=== PATIENT | male | born 1955 | race Caucasian/White ===

== ENCOUNTER 2017-07-15 20:09 | Emergency (ER) | payer OTHER ==
[~2017-07-15] VITALS: Ht 182.9 cm; Wt 79.4 kg
[~2017-07-15 20:09] MED LIST: APAP650; AUGMENTIN 875875 M1 PO; AVELOX PO; CRESTOR10 MG PO; DEPAKOTE500 MG PO; METHADONE HCL 110 M1; METHADONE HCL 110 M1 PO; MOBIC15 MG PO; MUCINEX D TABL1 EAC1 PO; MULTIPLE VITAM1 EAC3 PO; MULTIVITAMINS PO; NEXIUM40 MG PO; OXCARBAZEPINE300 M1 PO; PROAIR HFA8.5 GM IH; PULMICORT0.5 MG/21 INH; SPIRIVA INH; THIOTHIXENE10 M1 PO; THIOTHIXENE10 MG PO; TRILEPTAL 300300 MG PO
[2017-07-15] MEDS ORDERED: OMEPRAZOLE 20 M20 M1 PO (20:32)
[2017-07-15] MEDS ORDERED: PROSCAR 5MG TABL5 M1 PO (20:32)
[2017-07-15] MEDS ORDERED: BROVANA15 MCG/2 M INH (20:32)
== END 2017-07-15 23:05 | disposition home or self-care (01) ==
LOC: ER 20:09
DX: M54.6 Pain in thoracic spine (principal); W19.XXXA Unspecified fall, initial encounter; Y93.89 Activity, other specified; Y92.89 Other specified places as the place of occurrence of the external cause; Y99.8 Other external cause status; I10 Essential (primary) hypertension; K21.9 Gastro-esophageal reflux disease without esophagitis; J45.909 Unspecified asthma, uncomplicated; F20.9 Schizophrenia, unspecified; Z88.2 Allergy status to sulfonamides; Z88.1 Allergy status to other antibiotic agents

== ENCOUNTER 2017-07-21 15:30 | Emergency (ER) | payer OTHER ==
[~2017-07-21] VITALS: Ht 182.9 cm; Wt 79.4 kg
[~2017-07-21 15:30] MED LIST changes: +BROVANA15 MCG/2 M INH; +OMEPRAZOLE 20 M20 M1 PO; +PROSCAR 5MG TABL5 M1 PO
[2017-07-21] MEDS ORDERED: TRAMADOL 50 MG50 MG PO (17:05)
== END 2017-07-21 18:03 | disposition home or self-care (01) ==
LOC: ER 15:30
DX: M54.2 Cervicalgia (principal); I10 Essential (primary) hypertension; K21.9 Gastro-esophageal reflux disease without esophagitis; J45.909 Unspecified asthma, uncomplicated; F31.9 Bipolar disorder, unspecified; Z88.1 Allergy status to other antibiotic agents; Z88.2 Allergy status to sulfonamides; W19.XXXA Unspecified fall, initial encounter; Y93.89 Activity, other specified; Y92.89 Other specified places as the place of occurrence of the external cause; Y99.8 Other external cause status

== ENCOUNTER 2018-07-03 06:43 | Inpatient (IN) | payer OTHER ==
[~2018-07-03] VITALS: Ht 172.7 cm; Wt 86.0 kg
[~2018-07-03 06:43] MED LIST changes: +DEPAKOTE ER500 MG PO; -DEPAKOTE500 MG PO; +KEFLEX500 M1 PO; +TRAMADOL 50 MG50 MG PO
[2018-07-03 06:45] VITALS: BP 117/78
[2018-07-03] MEDS ORDERED: NORVASC5 MG PO (07:03)
[2018-07-03] MEDS ORDERED: PROSCAR 5MG TABL5 MG PO (07:04)
[2018-07-03] MEDS ORDERED: RISPERDAL0.5 MG PO (07:07)
[2018-07-03 07:43] LABS: ABSOLUTE NEUTROPHILS 4.1 thou/uL (1.4-8.2); BASOPHILS 0.4 % (0.0-2.0); HEMATOCRIT 34.1 % (42.0-52.0); HEMOGLOBIN 11.1 gm/dL (14.0-18.0); LYMPHOCYTES 14.9 % (24.0-44.0); MCH 28.6 pg (26.0-34.0); MCHC 32.7 g/dL (28.0-37.0); MCV 87.7 fL (80.0-100.0); MONOCYTES 9.2 % (1.0-8.0); POLYS 73.5 % (36.0-66.0); RBC 3.89 mil/uL (4.50-6.00); WBC 5.6 thou/uL (4.0-11.0)
[2018-07-03 07:52] LABS: CALCIUM 9.5 mg/dL (8.5-10.1); CREATININE 0.9 mg/dL (0.7-1.3); POTASSIUM 3.9 mmol/L (3.5-5.1)
[2018-07-03 07:53] LABS: APTT 30.8 Seconds (24.5-32.8); INR 1.2; PROTIME 12.7 Seconds (9.3-11.4)
[2018-07-03 08:03] LABS: ALBUMIN 2.6 g/dL (3.4-5.0); MAGNESIUM 1.8 mg/dL (1.8-2.4); TOTAL BILIRUBIN 0.5 mg/dL (<0.1-1.0); TOTAL PROTEIN 6.9 g/dL (6.4-8.2); TROPONIN-I 0.06 ng/mL (<0.06)
[2018-07-03 08:18] LABS: ANISOCYTOSIS 1+; LARGE PLATELETS SEVERAL; OVALOCYTES OCCASIONAL; PLATELET COUNT 169 thou/uL (150-400)
[2018-07-03 10:24] VITALS: BP 98/64
[2018-07-03 10:28] VITALS: BP 97/60
[2018-07-03 11:15] VITALS: BP 141/87
--- NOTE | 2018-07-03 11:33 | 2DMMODE ---
[facility] [place] [address] 2 D/M-MODE ECHOCARDIOGRAM Name: JONATHAN FORTE Room #: 213-P [facility] IN .R.#: [id number] ������������� Admission: 07/03/18 ������������� Attend Phys: Marty Moore MD Discharge: ��� ������������� ��� Date of : 55 Date of Service: 07/03/18 1133 �� Report #: [id number] �������� ��������������������������������������������[id number] THIS REPORT FOR: //name// APPROVED REPORT Study performed: 07/03/2018 10:26:19 EXAM: Comprehensive 2D, Doppler, and color-flow Echocardiogram Patient Location: ER Status: on-call BSA: 1.93 HR: 94 bpm BP: 98/64 mmHg Rhythm: Atrial Fibrillation Other Information Study Quality: Good Technically limited study due to heavy breathing, patient flat on back.. Indications Atrial Fibrillation Hx: HTN, cerebal palsy. 2D Dimensions RVDd: 33.43 mm IVSd: 13.84 (7-11mm) LVOT Diam: 20.87 (18-24mm) LVDd: 41.70 mm PWd: 14.94 (7-11mm) Ascending Ao: 31.83 (22-36mm) LVDs: 34.88 (25-40mm) Aortic Root: 32.41 mm Volumes Left Atrial Volume (Systole) Single Plane 4CH: 71.48 mL Single Plane 2CH: 65.00 mL LA ESV Index: 39.00 mL/m2 Aortic Valve AoV Peak Shaan.: 1.14 m/s AO Peak Gr.: 5.35 mmHg LVOT Max P.16 mmHg LVOT Max V: 0.88 m/s MARYSOL Vmax: 2.64 cm2 Mitral Valve [facility] [address] [place] [address] 2 D/M-MODE ECHOCARDIOGRAM Name: JONATHAN FORTE Room #: 213-P [facility] IN [facility].#: [id number] ������������� Admission: 07/03/18 ������������� Attend Phys: Marty Moore MD Discharge: ��� ������������� ��� Date of : 55 Date of Service: 07/03/18 1133 �� Report #: [id number] �������� ��������������������������������������������[id number] MV Decel. Time: 130.44 ms MV E Max Shaan.: 0.91 m/s Pulmonary Valve PV Peak Shaan.: 0.93 m/s PV Peak Gr.: 3.44 mmHg Tricuspid Valve TR Peak Shaan.: 2.75 m/s RAP Estimate: 15.00 mmHg TR Peak Gr.: 30.38 mmHg PA Pressure: 45.00 mmHg Left Ventricle The left ventricle is normal size. Moderate concentric left ventricular hypertrophy. Left ventricular systolic function is mildly decreased. LVEF is 45%. This study is not technically sufficient to allow evaluation of the LV diastolic function due to atrial fibrillation. Right Ventricle The right ventricle is normal size. The right ventricular systolic function is low normal. Atria Left atrium is moderately dilated. Right atrium is at the upper limits of normal. Aortic Valve Aortic valve is trileaflet, mildly calcified. No aortic regurgitation is present. There is no aortic valvular stenosis. Mitral Valve The mitral valve is normal in structure. Mild mitral regurgitation. Tricuspid Valve The tricuspid valve is normal in structure. Moderate tricuspid regurgitation. Estimated PAP is 40-45mmHg. Pulmonic Valve The pulmonary valve is normal in structure. Trace pulmonic regurgitation. Great Vessels The aortic root is normal in size. The ascending aorta is normal in size. IVC is dilated and collapses <50% with inspiration. [facility] [place] [address] 2 D/M-MODE ECHOCARDIOGRAM Name: JONATHAN FORTE Room #: 213-P ADM IN M.R.#: [id number] ������������� Admission: 07/03/18 ������������� Attend Phys: Marty Moore MD Discharge: ��� ������������� ��� Date of : 55 Date of Service: 07/03/18 1133 �� Report #: [id number] �������� ��������������������������������������������[id number] Pericardium There is no pericardial effusion. <Conclusion> The left ventricle is normal size. Moderate concentric left ventricular hypertrophy. Left ventricular systolic function is mildly decreased. The right ventricle is normal size. Left atrium is moderately dilated. Right atrium is at the upper limits of normal. Aortic valve is trileaflet, mildly calcified. Mild mitral regurgitation. Moderate tricuspid regurgitation. Estimated PAP is 40-45mmHg. ��������������������������������������������� <ELECTRONICALLY SIGNED> ���������������������������������������� By: Sreekanth Vaz MD ��������������������������������������������� 07/03/18 1133 113 32 Sreekanth Vaz MD /INF
[2018-07-03 15:35] VITALS: BP 102/75
[2018-07-03 20:25] VITALS: BP 120/85
[2018-07-04] VITALS (7 sets, daily range): BP systolic 85–117; BP diastolic 53–79
--- NOTE | 2018-07-04 00:44 | NUR ---
ASSESSMENT CHARTED. PATIENT ON CARDIZEM GTT AT 10MG/HR AT START OF SHIFT, TITRATE DOWN TO 5 MG/H AT MIDNIGHT DUE TO HYPOTENSION. REQUESTED BREATHING TREATMENT. HOME MEDS HAD NOT BEEN RESTARTED. SPOKE WITH JIMMY HOWE FOR ORDERS. PATIENT DENIED CONCERNS AFTER BREATHING TREATMENT. PLAN OF CARE TO CONTINUE DIURESING AND REGULATING HEART MEDS.
[2018-07-04 05:44] LABS: HEMOGLOBIN 10.4 gm/dL (14.0-18.0); MCH 28.5 pg (26.0-34.0); MCHC 32.4 g/dL (28.0-37.0); MCV 87.8 fL (80.0-100.0); RBC 3.65 mil/uL (4.50-6.00); RDW 16.7 % (10.5-14.5); WBC 4.5 thou/uL (4.0-11.0)
[2018-07-04 06:02] LABS: CALCIUM 8.4 mg/dL (8.5-10.1); CREATININE 1.4 mg/dL (0.7-1.3)
[2018-07-04 06:05] LABS: POTASSIUM 4.9 mmol/L (3.5-5.1)
--- NOTE | 2018-07-04 06:45 | NUR ---
ASSUMED CARE AROUND 0100. CARDIZEN DRIP HELD PER SBP TOO LOW. COUPLE HOURS LATER, BP STILL LOW, HR LOW, PT DIAPHORETIC. CALLED RT FOR BREATHING TX AND GAVE ONE TIME BOLUS. VSS NOW. NO S/S ACUTE DISTRESS NOTED OR REPORTED AT THIS TIME. WILL CONT TO MONITOR FOR ANY CHANGES IN CONDITION.
--- NOTE | 2018-07-04 08:16 | EKG ---
[address] [place] [address] ELECTROCARDIOGRAM REPORT Name: JONATHAN FORTE Room #: 213-P ADM IN M.R.#: [id number] ������������������ Admission: 07/03/18 ������������������ Attend Phys: Marty Moore MD Discharge: ������������������ Date of : 55 Report #: [id number] ����������������������������������������������������������������� [id number] THIS REPORT FOR: //name// [facility] ED Test Date: 2018-07-03 Test Time: 07:12:00 Pat Name: JONATHAN FORTE Department: Room: 213 Gender: M State Archivist: : 1955 Requested By: Chuck Mariee Order Number: [id number] MD: Sreekanth Vaz Measurements Intervals [place] Rate: 149 P: [place]: QRS: 3 QRSD: 86 T: QT: 327 QTc: 515 Interpretive Statements Atrial fibrillation Ventricular premature complex Borderline low voltage, extremity leads Nonspecific T abnormalities, lateral leads Prolonged QT interval Compared to ECG 06/03/2010 18:29:11 Ventricular premature complex(es) now present T-wave abnormality now present Prolonged QT interval now present Sinus tachycardia no longer present Electronically Signed On 07-04-2018 8:16:39 CDT by Sreekanth Vaz [email or web address] ��������������������������������������������� <ELECTRONICALLY SIGNED> ���������������������������������������� By: Sreeaknth Vaz MD ��������������������������������������������� 07/04/18 0816 1 1 Sreekanth Vaz MD /EPI
--- NOTE | 2018-07-04 16:44 | NUR ---
ASSUMED CARE THIS AM, PATIENT SLEEPING BUT AWAKES TO VOICE. NO COMPLAINTS OF PAIN OR NAUSEA. ORIENTED TO SELF WHICH IS HIS BASELINE. 4L NC, CONVERTED TO SR FROM AFIB AT O738. DR. STEVEN WILL PUT PATIENT ON BABY ASA, HIGH RISK OF BLEED BECAUSE OF FALLS. OOB TO CHAIR WITH MODERATE ASSIST. 1700: BROTHER AT BS, UPDATED ON POA. CONTINUES IN SR. LASIX ON HOLD AND LOVENOX DISCONTINUED.
[2018-07-05 04:32] VITALS: BP 104/75
--- NOTE | 2018-07-05 05:55 | NUR ---
ASSUMED PT CARE AT 1900. VSS. PT A&0X4. NIGHT TIME METOPROLOL NOT GIVEN HR WAS LESS THAN 90 PER PASSED ON INSTRUCTION BY FROM DAY NURSE. PT IS STABLE THOUGH, RESTED WELL MOST OF THE NIGHT, HE HAD A BM LAST NIGHT, ALTHOUGH VERY MINIMAL URINE OUTPUT OVERNIGHT. BLE EDEMA STILL PRESENT. O2 NC AT 3.5. SATS ARE FINE, WILL CONTINUE TO MONITOR PER POC.
[2018-07-05 07:30] VITALS: BP 127/83
--- NOTE | 2018-07-05 08:37 | HC ---
[facility] [place] [address] CONSULTATION Name: JONATHAN FORTE Room #: 213-P [facility] M.R.#: [id number] Admission: 07/03/18 ������������������ Attend Phys: Marty Moore MD Discharge: ������������������ Date of : 55 Report #: [id number] THIS REPORT FOR: //name// CC: Marty Mcallister DATE OF SERVICE: 07/03/2018 INDICATION: Dyspnea. HISTORY OF PRESENT ILLNESS: This is a 63-year-old male with a history of cerebral palsy, spastic paresis, hypertension, hypercholesterolemia, recurrent falls, GERD presenting with fatigue, dyspnea and edema. The patient reports dyspnea for the past few weeks, but denies any history of orthopnea. He has noted fatigue and edema. There is no history of chest pains, fever, cough, PND or orthopnea. He denies any history of palpitations. He lives in assisted living facility. In the ER, he was noted to be in atrial fibrillation with a rapid ventricular rate. He has no prior cardiac history. PAST MEDICAL HISTORY: Cerebral palsy with spastic paresis, chronic degenerative arthritis of the spine, recurrent falls. Hypertension, hypercholesterolemia, GERD, bipolar disorder. ALLERGIES: TO ERYTHROMYCIN AND SULFA. MEDICATIONS: Include tramadol, Keflex, omeprazole 20 mg, amlodipine 5 mg, Crestor 10 mg, albuterol, Spiriva. SOCIAL HISTORY: Negative for tobacco use. FAMILY HISTORY: Negative for premature CAD. REVIEW OF SYSTEMS: A full 10-point review of systems is performed. Only the pertinent positives and negatives are described in the HPI. PHYSICAL EXAMINATION: VITAL SIGNS: Blood pressure is 120/80, heart rate is 110 beats per minute. GENERAL APPEARANCE: This is a well-developed, well-nourished male in no acute distress. HEENT: Normocephalic, atraumatic. Oral mucosa moist. NECK: Supple. LUNGS: Diminished breath sounds at the bases. CARDIAC: Irregularly regular, S1, S2 positive. ABDOMEN: Soft, nontender. Positive edema, no cyanosis. ECG reveals atrial fibrillation with a rapid rate, nonspecific T-wave [facility] [address] [place] [address] CONSULTATION Name: JONATHAN FORTE Room #: 213-P [facility] IN .R.#: [id number] Admission: 07/03/18 ������������������ Attend Phys: Marty Moore MD Discharge: ������������������ Date of : 55 Report #: [id number]. LABORATORY VALUES: Troponin 0.1. White count is 5.6, hemoglobin is 11.1, platelet counts is 169, BUN is 32, creatinine 0.9. ASSESSMENT AND PLAN: 1. Atrial fibrillation with a rapid ventricular rate, TSH level is within normal limits. The etiology is unclear. Would proceed with rate control with IV Cardizem. We will need an echocardiogram. Recommend Lovenox at this time. He may not be a good candidate for long-term anticoagulation in view of his history of falls. 2. Weakness/dyspnea, rule out pneumonitis. Check cultures and chest x-ray. 3. Hypertension, hold amlodipine. May need to transition to beta jada for management of blood pressure and atrial fibrillation. 4. Hypercholesterolemia, continue statin medication. 5. History of cerebral palsy with spastic paresis, fall precautions. 6. Gastroesophageal reflux disease, continue with PPI. ��������������������������������������������� <ELECTRONICALLY SIGNED> ���������������������������������������� By: Sreekanth Vaz MD ��������������������������������������������� 07/05/18 0837 2124 [id number] Sreekanth Vaz MD /nt
[2018-07-05 10:56] VITALS: BP 121/99
[2018-07-05 15:25] VITALS: BP 96/62
--- NOTE | 2018-07-05 18:13 | NUR ---
ASSESSMENT CHARTED, VSS, O2 AT 4L, PATIENT HAS A CONDOM CATHERTER, NO COMPAINTS OF PAIN, WILL CONTINUE TO MONITOR
[2018-07-05 19:20] VITALS: BP 96/70
--- NOTE | 2018-07-05 21:27 | NUR ---
2120: CALLED JESSI AVENDAÑO REPORT LOW URINE OUTPUT FROM DAYSHIFT. PT ONLY HAS 100 OUT PER DAY NURSE DURING REPORT/AND LASIX WAS GIVEN AT ABOUT 1415 TODAY. PT IS NOT ON FLUIDS AND I AM NOT SURE HOW MUCH FLUIDS HE DRINK PER SHIFT. JESSI TO READ THROUGH PT'S CHART AND CALL BACK WITH A FOLLOW UP. WILL CONTINUE TO MONITOR PT
[2018-07-06 00:35] VITALS: BP 94/72
[2018-07-06 03:51] VITALS: BP 113/80
[2018-07-06 04:12] LABS: HEMATOCRIT 35.3 % (42.0-52.0); HEMOGLOBIN 11.4 gm/dL (14.0-18.0); MCH 28.5 pg (26.0-34.0); MCHC 32.3 g/dL (28.0-37.0); MCV 88.3 fL (80.0-100.0); RBC 3.99 mil/uL (4.50-6.00); RDW 16.8 % (10.5-14.5); WBC 3.8 thou/uL (4.0-11.0)
[2018-07-06 04:17] LABS: CALCIUM 8.2 mg/dL (8.5-10.1)
[2018-07-06 04:41] LABS: CREATININE 3.1 mg/dL (0.7-1.3)
[2018-07-06 07:40] VITALS: BP 135/91
--- NOTE | 2018-07-06 09:04 | NUR ---
ASSUME ARE 1900. NOTED FROM DAY NURSE PT'S TOTAL SHI8FT OUTPUT WAS 100ML WITH 40MG/LASIX GIVEN AT 1415. BLADDER SCAN AT SHIFT CHANGE SHOWS URINE >277ML IN BLADDER. ELEMENTARY MATH TUTOR CALLED AND UPDATED. ELEMENTARY MATH TUTOR TO READ MD'S NOTES AND FOLLOW UP WITH NURSE. CONTINUE TO MONITOR URINE OUTPUIT AND ENCOURAGED PT TO DRINK MORE. BP LOW WITH SBP IN THE 90s. PT HAS EDEMA IN BILATERAL LOWER EXTREMITIES SDPEADING TO ABDOMEN/MINOR HIP AND BACK AREAS. CR UP TO 3.4 THIS AM. ANOTHER BLADDER SCAN SHOWS 125ML IN BLADDER, AND PT NOTED TO HAVE BEEN INCONTINENT 4 TIMES FROM MIDNIGHT TO MORNING AFTER A TOTAL FLUID INTAKE OF ABOUT 360ML. 2 MOD AMOUNT BMs NOTED. ELEMENTARY MATH TUTOR CALLED AND UPDATED ON THE SHIFT IN CREATININE AND WILL FOLLOW UP WITH IN COMING MD ON WHAT STEP TO TAKE NEXT. WILL CONTINUE TO MONITOR AND FOLLOW WITH POC
[2018-07-06 11:04] LABS: BE(vivo) -4.7 mmol/L (-2 to +3); HCO3 22.6 mmol/L (22.0-26.0); PCO2 51.2 mmHg (35.0-45.0); PO2 62.9 mmHg (80.0-100.0); pH 7.263 (7.360-7.450); sO2 88.6 % (92.0-98.0)
[2018-07-06 11:30] VITALS: BP 103/72
[2018-07-06 13:06] LABS: BE(vivo) -3.3 mmol/L (-2 to +3); HCO3 23.2 mmol/L (22.0-26.0); PCO2 48.1 mmHg (35.0-45.0); pH 7.302 (7.360-7.450); sO2 96.6 % (92.0-98.0)
[2018-07-06 13:12] LABS: URINE BILIRUBIN NEGATIVE (Negative); URINE BLOOD 3+ (Negative); URINE CLARITY CLEAR; URINE COLOR YELLOW; URINE GLUCOSE-RANDOM* NEGATIVE (Negative); URINE KETONES NEGATIVE (Negative); URINE LEUKOCYTES-REFLEX NEGATIVE (Negative); URINE NITRITE-REFLEX NEGATIVE (Negative); URINE PROTEIN (DIPSTICK) 1+ (Negative); URINE SPECIFIC GRAVITY 1.025 (1.005-1.035)
[2018-07-06 13:21] LABS: AMORPHOUS URATES Moderate /LPF (None Seen); BACTERIA-REFLEX 1-9 Few /HPF (None Seen); HYALINE CASTS 0-3 Few /LPF (None Seen); SQUAMOUS 4-10 Moderate /LPF (0-3); TRANSITIONAL EPITHEL CELL 4-10 Moderate /LPF (None Seen); URINE WBC-REFLEX None Seen /HPF (0-5)
--- NOTE | 2018-07-06 18:20 | NUR ---
PT A&OX2. IV INTACT IN L AC. TRANSFERS WITH MAX ASSIST X2. INCREASED EDEMA NOTED TODAY. INCREASED SOA. CRITICAL ABG RECEIVED AND CALLED TO . NEW ORDERS RECEIVED, PT ON BIPAP AT THIS TIME. PT STRAIGHT CATHED FOR URINE CX AND ONLY 50 ML RETURNED PT NOT RETAINING URINE. RENAL US COMPLETED. WILL CONT POC.
[2018-07-06 20:11] VITALS: BP 118/88
[2018-07-07 00:01] VITALS: BP 103/55
[2018-07-07 05:09] VITALS: BP 95/60
[2018-07-07 05:17] LABS: ALBUMIN 2.2 g/dL (3.4-5.0); CALCIUM 7.9 mg/dL (8.5-10.1); CREATININE 3.4 mg/dL (0.7-1.3); PHOSPHORUS 7.1 mg/dL (2.5-4.9)
[2018-07-07 05:22] LABS: POTASSIUM 5.3 mmol/L (3.5-5.1)
--- NOTE | 2018-07-07 06:46 | NUR ---
patient cares were asssumed at shift change. patient was assessed and meds were passed. patient did continue on bypap this shift. abgs comprmised as of yesterday. hourly rounding was done. the bed is in a low and locked position.
[2018-07-07 07:38] VITALS: BP 112/76
[2018-07-07 10:56] VITALS: BP 113/77
--- NOTE | 2018-07-07 14:15 | NUR ---
Case opened to follow for dc planning needs. Finishing Machine Operator Automatic visited with the pt at bedside. He has a complex medical history with CP and mental health issues. The pt is a&ox4 and indicates that he lives in the independent apts at [facility]. He has a rwalker, std walker, hover round, nebulizer and shower bench. He walks to meals with his rwalker and has been able to transfer and gait short distances independently. His brother/dpoa Gildardo setups up a monthly pill box and the pt manages taking his daily medications. The pt reports his brother to be his dpoa and provided permission for me to contact him. Cm role introduced to the pt at bedside and his brother via phone. His brother will bring a copy of his dpoa for both health care and finances in for the chart. He confirmed the information provided by the pt but notes that he recently arranged for some private duty support 3x daily to help the pt in and out of bed and to meals. He also indicates that the pt has had PT/OT through an onsite provider at [facility]. He denies the pt having had any previous HH, snf or rehab stays. Will ask for therapy evals. Pt now on 5liters of o2. Will await the care team recommendations and f/u with the pt and his brother regarding any dc needs.
[2018-07-07 15:19] VITALS: BP 128/80
--- NOTE | 2018-07-07 16:45 | NUR ---
Assumed pt care at 7am.Pt in bed with bipap on sating okay and wnl.Assessment completed.vss.This rn fed pt at breakfast and lunch,fair appetite noted. Dr Mcallister visit pt early this am prior to other Doctors.Pt sat on 4liter was in the mid-'s.Dr Meredith notified and he wanted pt off bipap during the day.Pt dpoa here and updates given.Pt wet bed twice today with urine.Pericare done and complete bed change done.Pt in bed resting at present without c/o. Will continue to monitor.
[2018-07-07 20:07] VITALS: BP 133/91
--- NOTE | 2018-07-08 02:22 | NUR ---
ASSESSMENTS CHARTED, PATIENT ON NASAL CANULA AT START OF SHIFT, CHANGE TO BIPAP AT NIGHT. REAPPLIED CONDOM CATH FOR SKIN INTEGRITY. PER NURSING REPORT FAMILY IS REQUESTING NO STEROID TREATMENTS DUE TO SIDE EFFECTS. PLAN OF CARE TO CONTINUE DIURESING, BREATHING TREATMENTS. FALL PRECAUTIONS IN PLACE.
[2018-07-08 04:47] VITALS: BP 118/74
[2018-07-08 05:21] LABS: ALBUMIN 2.4 g/dL (3.4-5.0); CREATININE 3.1 mg/dL (0.7-1.3); PHOSPHORUS 6.6 mg/dL (2.5-4.9)
[2018-07-08 07:26] VITALS: BP 139/76
--- NOTE | 2018-07-08 07:50 | NUR ---
PATIENT TOOK OFF TWO CONDOM CATHETERS DURING THE NIGHT AND DISCONTINUED TWO IV'S DURING THE NIGHT. A NEW RIGHT FOREARM IV WAS STARTED AND NS WAS MOVED TO THE NEW IV.
[2018-07-08 11:48] VITALS: BP 125/70
[2018-07-08 16:05] VITALS: BP 120/74
--- NOTE | 2018-07-08 16:42 | NUR ---
ASSESSMENT CHARTED, VSS, 18 FR DONALD INSERTED, PATENT TO DD, PATIENT TOLERATED WILL, NS INFUSING AT 60, FAMILY AT BEDSIDE, WILL CONTINUE TO MONITOR.
[2018-07-08 19:30] VITALS: BP 117/73
[2018-07-09 03:08] VITALS: BP 116/72
--- NOTE | 2018-07-09 04:09 | NUR ---
ASSESSMENTS CHARTED. MENTATION CLEARER AT START OF SHIFT, DURING NIGHT HE APPEARS MORE CONFUSED AND CARRIES ON MUMBLED CONVERSATIONS WITH HIMSELF. WOUND CARE CONSULTED FOR WOUND ON BRIDGE OF NOSE. ON BIPAP AT NIGHT. PLAN OF CARE TO TREAT LUNG ATELECTASIS AND RENAL FUNCTION.
[2018-07-09 05:28] LABS: ALBUMIN 2.3 g/dL (3.4-5.0); CALCIUM 8.2 mg/dL (8.5-10.1); CREATININE 2.5 mg/dL (0.7-1.3); PHOSPHORUS 4.9 mg/dL (2.5-4.9); POTASSIUM 4.9 mmol/L (3.5-5.1)
[2018-07-09 07:28] VITALS: BP 137/80
--- NOTE | 2018-07-09 08:02 | NUR ---
WOUND CONSULT; A SMALL AREA OF SKIN BREAKDOWN TO THE BRIDGE OF THE NOSE RE; BIPAP MECHANICAL PRESSURE. SMALL AMOUNT OF DRAINAGE NOTED. RECOMMENDATIONS; USE A SMALL PIECE OF OPTIFOAM AG WHEN WEARING BIPAP. STAFF NURSE WAS ASKED TO GET AN ORDER FROM THE PCP FOR AN ATIBACTERIAL CREAM. DISCUSSED WITH RN 07/08/18
--- NOTE | 2018-07-09 11:24 | NUR ---
ORIENTED TO SELF. CALM. NO COMPLAINTS. COMPLETE CARES. HIS SEVERAL MD'S HAVE MENTIONED S. AUREUS IN SPUTUM. IN AND OUT OF AFIB. WHEN I FED HIM BREAKFAST HE BEGAN COUGHING, HR TACHY INTO THE 140'S PER TELE, BACK DOWN TO 120'S ONCE COUGHING SPELL ENDED. FREQUENT CHECKS; WILL CONTINUE TO MONITOR.
[2018-07-09 12:10] VITALS: BP 90/66
[2018-07-09 14:29] VITALS: BP 121/92
--- NOTE | 2018-07-09 17:07 | NUR ---
Case discussed with the care team and therapy evals requested as appropriate. Dc timeframe uncertain due to pt's pulm status and ongoing afib. Pt continues on o2 and bipap. ST doing swallow eval. The attending has spoken with the pt's brother Gildardo and updated him on the pt's condition. Will follow. Pt will likely need SNF or HH at dc.
[2018-07-09 19:55] VITALS: BP 107/86
[2018-07-10 02:46] VITALS: BP 117/77
--- NOTE | 2018-07-10 04:04 | NUR ---
ASSESSMENT DOCUMENTED.VSS.PT WITH INCREASED HR,AFIB/RVR ON MONITOR WITH HR BETWEEEN 120S-150BPM,PT DENIES CHEST PAIN OR ANY CONCERNS.LOPRESSOR IV WAS GIVEN WITHOUT RESPONSE,DR LIAO WAS CONTATED,NEW ORDER WAS GIVEN TO START AMIODARONE IV PER PROTOCOL.PT TOLERATED BIPAP FOR ABOUT FIVE HOURS.PT ON O2 AT 4LITERS PNC,SATS [place] .NEB TX PER RT.PT GIVEN BED BATH,TOLERATED.SHABANA GO.TURNED AND REPOSITIONED Q2H.PT DENIES PAIN OR ANY DISTRESS.NOTED ALOT OF COUGHING WITH DRINKING HONEY THICKENED LIQUIDS,ENFORCED SWALLOW PRECAUTIONS.MINRO LES ELEVATED.POC IS TO CONT WITH POC.WILL CONT TO MONITOR PER POC.
[2018-07-10 04:47] VITALS: BP 124/90
[2018-07-10 05:40] LABS: ALBUMIN 2.6 g/dL (3.4-5.0); CALCIUM 8.4 mg/dL (8.5-10.1); POTASSIUM 5.1 mmol/L (3.5-5.1)
[2018-07-10 08:11] VITALS: BP 102/75
[2018-07-10 12:37] VITALS: BP 112/81
[2018-07-10 16:26] VITALS: BP 130/94
--- NOTE | 2018-07-10 16:40 | NUR ---
ASSESSMENT CHARTED - MEDS PER MAR - NO CO'S OF PAIN OR NAUSEA. AB PURREE DIET- HAVING TO REMIND PATIENT TO DO CHIN TUCK SO THAT NO COUGHING IS HEARD POST SWALLOW - DOES NOT ALWAYS REMEMBER AND COUGHING IS HEARD AT TIME. HAVE NOT GIVEN PATIENT FLUIDS EVEN WITH CHIN TUCK COUGHING OCCURS. PATIENT WITH LABOURED RESPS AND USING ACCESSORY MUSCELS TO BREATH THIS AM - O2 SAT IN THE 80'S PATIENT HAD BEEN TURNED DOWN TO 2 L NC - ? RESP- PATIENT URNED BACK UP TO 4 LITRES WITH SAT BACK IN THE LOWER 90'S. PATINET CONTINUE TO STRUGGLE AND INFORMED PATIENT THAT i WAS GOING TO PLACE BACK ON BIPAP AND HE REFUSED - AFTER LUNCH PATIENT STILL STUGGLING TO BREATH RR IN THE 30 - HR JUMPING UP TO THE 130'S - PLAED BACK ON BIPAP AND RR NOW 20-24 HR RATE IN THE 110'S AND PATIENT APPEARS COMFORTABLE. GIVEN TOPRLOL THIS AM FOR ELEVATED HR WITH LITTLE EFFECT - PLACING PATIENT BACK ON BIPAP CARABALLO BEEN THE MOST BENIFICAL FOR HR. BROTHER IN TO SEE THIS AFTERNOON.
[2018-07-10 19:25] VITALS: BP 114/80
[2018-07-11 04:00] VITALS: BP 136/91
[2018-07-11 05:43] LABS: ALBUMIN 2.5 g/dL (3.4-5.0); CALCIUM 8.9 mg/dL (8.5-10.1); CREATININE 1.8 mg/dL (0.7-1.3); PHOSPHORUS 3.7 mg/dL (2.5-4.9); POTASSIUM 5.6 mmol/L (3.5-5.1)
[2018-07-11 07:24] VITALS: BP 120/78
[2018-07-11 11:08] VITALS: BP 128/75
[2018-07-11 15:16] VITALS: BP 146/102
--- NOTE | 2018-07-11 16:51 | NUR ---
ASSESSMENT CHARTED - MEDS PER VIRGIE - AB DIET AND FLUIDS - PT DID NOT HAVE LUNCH TODAY HE WAS SLEEPING PEACEFULLY - DR MOON IN TO SEE PATIENT AND SETTING ON THE BIPAP CHANGED AND PATIENT WENT TO SLEEP - RR IN THE TEENS, HR IN THE 90 -LOW 100'S LEFT PATIENT TO SLEEP RATHER THAN AWAKEN AND HE HAS RESP CHALLENGES - 1200 ASSESSMENT NOT COMPLETED PT LEFT TO REST - AMMIO CONTINUES TO RUN ORDERED. PT REMAINS IN AFIB - BROTHER UP TO VISIT BUT LEFT DUE TO PATIENT SLEEPING. WHEN AKAE PT RR 20'S TO LOW 30' HR JUMPING UP TO THE 130'S - DR'S ARE AWARE OF THIS. PATIENT REQUIRING TO BE FEED - NO CO'S AT THE PRESENT TIME.
[2018-07-11 19:20] VITALS: BP 113/84
[2018-07-12] VITALS (18 sets, daily range): BP systolic 64–140; BP diastolic 26–90
[2018-07-12 04:22] LABS: CALCIUM 8.9 mg/dL (8.5-10.1); CREATININE 1.5 mg/dL (0.7-1.3); POTASSIUM 5.4 mmol/L (3.5-5.1)
--- NOTE | 2018-07-12 06:36 | NUR ---
RECEIVED PT'S CARE AT 1935; PT. ON BED SLEEPING WITH CPAP; O2 SAT ABOVE 90%; HR ON THE 110'S; DURING ASSESSMENT SLEEPING; WOKE UP; ALERT TO PERSON, PLACE; SITUATION; C/O PAIN OVER L. SIDE ABDOMEN; YOGURTH GIVEN WITH MEDICATION; ST. NO PAIN; REQUESTED WATER THROUGH THE NIGHT; GIVEN; TURNED Q2H; NO BM; AT 0400 GOT REST FROM CPAP TO DRINK WATER & CHANGE DRESSING; ON 6L O2; O2 SAT ABOVE 90%; HR INCREASE TO 120'-130'S; DID NOT SUSTAIN; CPAP BACK AT 0445; ABLE TO REST THROUGH THE NIGHT FOR A FEW HOURS; NO PRN PAIN MEDICATION GIVEN; ASSESSMENT CHARGED; FOLLOWING POC; WILL PASS ON REPORT.
--- NOTE | 2018-07-12 11:13 | NUR ---
WOUND CARE FOLLOW UP; F/U ASSESSMENT TODAY. THE BRIDGE OF THE NOSE IS HEALED. APPLIED BARRIER WIPES TO THE NOSE. CONCERNED ABOUT THE COCCYX ARE UNABLE TO VISUALIZE DUE TO BREATHING. RECOMMENDATION ; WILL ADD A LOW AIR MIGUEL PUMP TO THE BED. USE A FOAM DRESSING TO THE BRIDGE OF THE NOSE DURING BIPAP ONLY. RN PRESENT
--- NOTE | 2018-07-12 12:00 | NUR ---
PT IS A&0X4, DIFFICULT AT TIMES TO COMPREHEND SPEECH, EXPRESSES DELIGHT IN NURSING CARE THAT'S HES RECEIVED, DRESSING TO BRIDGE OF NOSE, CPAP, REPORTS OF DESATING WHEN NOT ON CPAP, WOUND CARE STATES PLACE OPTIFOAM ON BRIDGE OF NOSE WHEN WEARING CPAP, OFF WHEN NOT IN USE, PT DENIES ANY PAIN, FROM [place], THERAPY STATES ONE CLOSE SBA W/WALKER AND W/C FOR LONG DISTANCES. NIGHT STAFF HADNOT HAD OPP TO GET PT UP AND STATED MAX ASSIST. BETABLOCKER CHANGED THIS A.M. AND PT'S HR DROPPED LESS THAN 140S, AT TIME OF NOTE ONE TEENS HR. LEFT FOR VIDEO SWALLOW THIS A.M. WILL CONTINUE TO MONITOR AND MEET NEEDS OF PT AND FAMILY
--- NOTE | 2018-07-12 14:49 | NUR ---
BECKY SYNOPSIS: REC REPORT OF PT DESATING HS WITHOUT CPAP, CPAP REMOVED AT MEALS, NO CHOKING DURING BFAST NOR LUNCH. THE LATTER FED TO HIM BY HIS BROTHER ON 5L 02 N/C... . CALLED RT TO LET THEM KNOW PT WAS DONE W/LUNCH AND READY TO BE PLACED BACK ON CPAP. PT'S 02 SATS WERE DECOMPENSATING, HR ABOUT SAME RANGE 110-130S ON AMIO GTT, PT TAKING RAPID RESP AT 24-32 PM. CALLED RT, DR STEVEN, DR MOON, BECKY, DR DENISE. ORDERS GIVEN AND DR. MOON TALKED WITH ALL RT TEAM. IV LASIX GIVEN, MS ADDED IN ALSO 2MG WELL THE 4MG LUNG SOUNDS WERE SLIGHTLY COARSER, SWELLING BLE WAS TIGHT, SCROTUM SWELLING PART OF ADMIT DX, PT'S BROTER NOTICED SWELLING PAST WEEK AND A HALF ON SCROTUM. ALSO STATES DIFFERENT BODY PARTS HAVE SWELLED AND GONE BACK DOWN LAST FEW MONTHS. ALSO MENTIONS A SCROTUM SCRATCH THAT PT HAS DONE IN LAST MONTH. ASKED DR STEVEN ABOUT POSSIBILITY OF PICC LINE FOR AMIO GTT >24H AND HE ORDERED PO. DR MOON SAID IF PT CONTINUES IN A VEIN OF DISCOMFORT FOR STAFF'S NEEDS/ATTN TO TX TO ICU. WE WILL CONTINUE TO MONITOR AND ACT NEEDED.
[2018-07-12 21:24] LABS: BE(vivo) -2.1 mmol/L (-2 to +3); HCO3 28.6 mmol/L (22.0-26.0); PO2 63.5 mmHg (80.0-100.0); sO2 84.5 % (92.0-98.0)
[2018-07-12 21:27] LABS: pH 7.155 (7.360-7.450)
[2018-07-12 21:28] LABS: PCO2 82.9 mmHg (35.0-45.0)
--- NOTE | 2018-07-12 22:46 | NUR ---
ASSUMED PT CARE AT 1900 WITH PT ON BIPAP. PT IS STABLE ON BIPAP. PT STARTED TO GET AGITATED AND ANXIOUS AT ABOUT 1999. OXYGEN SATURATION DECREASED. RESPIRATORY THERAPIST WHO CAME IN TO EVALUATE PATIENT. SETTINGS WERE ADJUSTED ON THE BIPAP TO HELP WITH BREATHING BUT DIDNT HELP. MORPHINE ADMINISTERED TO PT. ABG OBTAINED AND CRITICAL RESULT CALLED TO DR MOON. PHYSICIAN UPDATED ON PATIENT'S STATUS. PT IS TRANSFERRED TO ICU FOR A HIGHER LEVEL OF CARE. BROTHER /DPOA NOTIFIED ON PT'S STATUS.
[2018-07-12 23:19] LABS: BE(vivo) 0.1 mmol/L (-2 to +3); HCO3 29.9 mmol/L (22.0-26.0); sO2 95.8 % (92.0-98.0)
[2018-07-12 23:20] LABS: PCO2 77.8 mmHg (35.0-45.0); pH 7.202 (7.360-7.450)
[2018-07-13] VITALS (107 sets, daily range): BP systolic 54–160; BP diastolic 25–97
[2018-07-13 00:43] LABS: BE(vivo) 0.1 mmol/L (-2 to +3); HCO3 29.1 mmol/L (22.0-26.0); PO2 77.1 mmHg (80.0-100.0); sO2 92.4 % (92.0-98.0)
[2018-07-13 00:44] LABS: PCO2 71.6 mmHg (35.0-45.0); pH 7.227 (7.360-7.450)
[2018-07-13 05:12] LABS: BE(vivo) 1.8 mmol/L (-2 to +3); HCO3 24.8 mmol/L (22.0-26.0); PCO2 33.8 mmHg (35.0-45.0); PO2 67.6 mmHg (80.0-100.0); pH 7.484 (7.360-7.450); sO2 94.9 % (92.0-98.0)
--- NOTE | 2018-07-13 06:00 | NUR ---
PT ARRIVED IN ICU FROM CCU AT ABOUT 2230 LAST NIGHT. PT EXTREMELY RESTLESS AND IN RESP DISTRESS; PT ON BIPAP AT THE TIME. PT WAS IN A FIB RVR. PT INTUBATED BY DR. MOON AT 2355. PT STARTED ON PROPFOL GTT FOR SEDATION. LEVO GTT STARTED DUE TO LOW BP R/T SEDATION FOR INTUBATION. FENTANYL GTT STARTED SEVERAL HOURS LATER, IN EDITION TO A LOW DOSE OF PROPOFOL. VERSED ALSO GIVEN IV PUSH PRN. BRONCH AFTER INTUBATION. PT CONTINUED TO HAVE COPIOUS THICK SECRETIONS FROM ET TUBE FOR THE REST OF THE NIGHT. TALKED TO DR. BLUE REGARDING HEART RATE AND RHYTHM. METOPROLOL GIVEN. AMIO BOLUS GIVEN AND GTT STARTED. PT'S RATE IMPROVED SLIGHTLY BUT WOULD STILL HAVE TIMES WHERE IT WOULD INCREASE TO THE 140s. PT'S FAMILY UPDATED AT BEDSIDE ON PT'S CONDITION. WILL CONTINUE TO MONITOR.
[2018-07-13 07:00] LABS: HEMATOCRIT 36.6 % (42.0-52.0); HEMOGLOBIN 11.4 gm/dL (14.0-18.0); MCH 28.2 pg (26.0-34.0); MCHC 31.2 g/dL (28.0-37.0); MCV 90.4 fL (80.0-100.0); RBC 4.04 mil/uL (4.50-6.00); RDW 17.4 % (10.5-14.5); WBC 17.3 thou/uL (4.0-11.0)
[2018-07-13 07:21] LABS: ALBUMIN 2.4 g/dL (3.4-5.0); CALCIUM 9.4 mg/dL (8.5-10.1); CREATININE 1.9 mg/dL (0.7-1.3); POTASSIUM 5.9 mmol/L (3.5-5.1); TOTAL BILIRUBIN 1.2 mg/dL (<0.1-1.0); TOTAL PROTEIN 6.6 g/dL (6.4-8.2)
--- NOTE | 2018-07-13 08:18 | NUR ---
Pt WAS TRANSFERRED TO ICU LAST NIGHT D/T NEED FOR HIGHER LEVEL OF CARE. WILL NEED NEW PT ORDERS ONCE Pt APPROPRIATE AND MEDICALLY STABLE FOR PT INTERVENTIONS.
[2018-07-13 08:29] LABS: ABSOLUTE NEUTROPHILS 15.9 thou/uL (1.4-8.2); PLATELET COUNT 146 thou/uL (150-400)
[2018-07-13 08:30] LABS: LARGE PLATELETS OCCASIONAL; PLATELET ESTIMATE SLIGHTLY DECREASED
[2018-07-13 08:31] LABS: ANISOCYTOSIS 1+
--- NOTE | 2018-07-13 08:31 | NUR ---
OT SERVICES WILL BE PLACED ON HOLD HE TRANSFERED TO ICU FOR HIGHER LEVEL OF CARE. PLEASE REORDER THERAPY SERVICES WHEN Pt IS AVAILABLE AND APPROPRIATE FOR THERAPY.
--- NOTE | 2018-07-13 09:41 | NUR ---
Nutrition: REC consider start of enteral nutrition within 24 hrs. REC Nepro to reach goal rate of 45 mL/hr with current propofol rate. Defer fluid needs to physician-anasarca.
--- NOTE | 2018-07-13 10:18 | NUR ---
SANTOSH reviewed chart. Pt was transferred to ICU From CCU last evening. Pt is intubated. PICC line in place. Pt currently on IV abx: vanco/zosyn. Pt febrile. WBC 17.3. Therapy evaluations on hold until pt is extubated and more alert and able to follow commands. SANTOSH left voice message for pt's brother/DPOA, Gildardo, to provide. Pt is from [facility]. SANTOSH is following to assist as needed with discharge planning.
--- NOTE | 2018-07-13 10:27 | NUR ---
VASCULAR ACCESS TEAM CONSULTED FOR PICC PLACEMENT. PT'S LABS,MEDS,HISTORY,ORDER,CONSENT AND OK BY DR STANLEY VERIFIED. PT WAS PREPPED AND DRAPED FOR MAX BARRIER PRECAUTIONS. CHRISTOPHER BASILIC WAS WIDELY PATENT WITH USG,1% LIDOCAINE GIVEN SQ. 5FR TL POWER PICC TRIMMED TO 40CM INSERTED TO 0CM. STAT CXR DONE,SHOWED PICC CURLED. DRESSING REMOVED POWER FLUSHED ALL PORTS. ANOTHER CXR ORDERED LINE NO LONGER CURLED.
--- NOTE | 2018-07-13 11:00 | NUR ---
PICC WITHDRAWN 2 CM BRISK BR. PICC RELEASED FOR IMMEDIATE USE PER PROTOCOL.
--- NOTE | 2018-07-13 19:57 | NUR ---
SHIFT SUMMARY PATIENT RESTING QUIETLY ON VENT, WITH PROPOFOL AT 15MCG AND FENTANYL AT 10 MCG/HOUR. BREATHE SOUNDS IMPROVED AFTER LASIX. MONITOR REMAINS A FIB WITH A VENTICULAR RESPONSE 62-90 WITH AMIODARONE AT 0.5 MG/MIN. RIGHT UPPER ARM PICC LINE INSERTED THIS AM WITHOUT INCIDENT FOR IV USE. LEVOPHED OFF SINCE 1410 WITH MAP GREATER THAN 65. BROTHER GIVEN INORMATION PACKET OF MRSA EDUCATION. SPOKE WITH RX CONCERNING STEROID USAGE WITH ANTI PSYCHOTIC MEDICATIONS AND NO CONTRAINDICATIONS NOTED. ALSO CHANGED PO DELAYED RELEASE DEPAKOTE TO IV AFTER SPEAKING WITH THE PROVIDER. REASSURANCE PROVIDED TO THE PATIENT AND FAMILY.
--- NOTE | 2018-07-13 20:12 | NUR ---
SHIFT SUMMARY PATIENT RESTING ON THE VENT WITH PROPOFOL INFUSING AT 11 MCG. SCANT AMT OF SECRETIONS AND BREATHE SOUNDS IMPROVED. LEFT JUGULAR DIALYSIS CATH INSERTED IN IR THIS AM, PATIENT TOLERATED THE PROCEDURE WITHOUT INCIDENT. DIALYSIS FOR 3 HOUR WITHOUT FLUID REMOVAL AND TOLERATED PROCEDURE WITHOUT INCIDENT. LEVOPHED TAPPERED TO 2 MCG MAP IS GREATER THAN 65. MONITOR SB TO NSR. REASSURANCE GIVEN TO PATIENT AND FAMILY.
[2018-07-14] VITALS (95 sets, daily range): BP systolic 75–143; BP diastolic 33–75
[2018-07-14 05:03] LABS: BE(vivo) -0.2 mmol/L (-2 to +3); HCO3 27.5 mmol/L (22.0-26.0); PCO2 58.4 mmHg (35.0-45.0)
[2018-07-14 05:19] LABS: PO2 49.7 mmHg (80.0-100.0)
[2018-07-14 06:51] LABS: ALBUMIN 2.2 g/dL (3.4-5.0); CALCIUM 9.2 mg/dL (8.5-10.1); CREATININE 2.2 mg/dL (0.7-1.3); PHOSPHORUS 5.4 mg/dL (2.5-4.9); POTASSIUM 5.2 mmol/L (3.5-5.1)
--- NOTE | 2018-07-14 07:30 | NUR ---
PT INTUBATED AND ON VENT. INITIALLY ON AMIO, PROPOFOL, AND FENTANYL GTTS. PT WAS IN A FIB WITH A RATE OF 60-80s UNTIL 0345 THIS MORNING. AFTER TURNING AND CLEANING THE PT, HE CONVERTED TO SINUS STANISLAW. THE RATE DROPPED TO THE 40s INITIALLY AND THEN CONTINUED TO DROP TO THE LOW 30s. PT'S BP ALSO DROPPED. PT'S SEDATION AND AMIO GTT STOPPED AT THAT TIME. LEVO GTT RESTARTED. WITH ATROPINE AT THE BEDSIDE, PT WAS CLOSELY MONITORED THE HR BEGAN TO GRADUALLY MOVE BACK UP. AROUND 0445, PT'S HR INCREASED TO THE 50s THE PT BEGAN TO WAKE UP FROM LACK OF SEDATION. PT FIGHTING THE VENT AND SPO2 DROPPED TO 75%. RT CALLED AND STAT ABG OBTAINED PER PROTOCOL. SEDATION RESUMED. PT BECAME SEDATED AGAIN, O2 SATURATION SLOWLY BEGAN TO INCREASE. CRITICAL ABG CALLED TO DR. MOON. ORDERS FOR CXR, ABG IN AN HOUR, AND TO SWITCH SEDATION TO VERSED GTT. PT SWITCHED FROM PROPOFOL TO VERSED GTT AT 0625. PT BECAME RESTLESS DURING TRANSITION, VERSED GTT TITRATED UP PRN. PT CONTINUED TO BE RESTLESS WHEN STIMULATED SO FENTANYL GTT RESTARTED AT SHIFT CHANGE. WILL CONTINUE TO MONITOR.
[2018-07-14 07:45] LABS: ABSOLUTE NEUTROPHILS 18.8 thou/uL (1.4-8.2); BASOPHILS 0.1 % (0.0-2.0); HEMATOCRIT 37.6 % (42.0-52.0); LYMPHOCYTES 4.2 % (24.0-44.0); MCHC 31.9 g/dL (28.0-37.0); MCV 87.8 fL (80.0-100.0); MONOCYTES 1.3 % (1.0-8.0); POLYS 94.4 % (36.0-66.0); RBC 4.28 mil/uL (4.50-6.00); RDW 17.9 % (10.5-14.5); WBC 19.9 thou/uL (4.0-11.0)
[2018-07-14 08:02] LABS: BE(vivo) 1.2 mmol/L (-2 to +3); HCO3 26.7 mmol/L (22.0-26.0); PCO2 45.9 mmHg (35.0-45.0); PO2 133.2 mmHg (80.0-100.0); pH 7.383 (7.360-7.450); sO2 98.6 % (92.0-98.0)
--- NOTE | 2018-07-14 10:08 | NUR ---
WOUND CARE FOLLOW UP; FOLLOW UP ASSESSMENT TODAY. THE PATIENT WAS MOVED TO ICU RE; RESPIRATORY ISSUES. THE LOW AIR LOSS PUMP WAS D/C'D DUE TO ICU BEDS HAVE THIS FEATURE INTIGRATED IN THE BED ITSELF. THE WOUND TO THE BRIDGE OF THE NOSE REMAINS HEALED. RECOMMENDATIONS; NO NEED TO FOLLOW AT THIS TIME. RECONSULT IF NEEDED. DISCUSSED WITH RN
[2018-07-14 10:20] LABS: PLATELET COUNT 163 thou/uL (150-400); PLATELET ESTIMATE NORMAL
--- NOTE | 2018-07-14 11:20 | NUR ---
VASCULAR ACCESS NURSE ROUNDING. PICC LINE IS APPROPRIATE AT THIS TIME. THIS PATIENT IS ON MULTIPLE IV MEDS INCLUDING VESICANTS SUCH LEVOPHED, VANCOMYCIN AND AMIODERONE. HE CONTINUES TO BE A CRITICAL PATIENT IN THE ICU, WE WILL CONTINUE TO EVALUATE LINE STATUS DAILY.
--- NOTE | 2018-07-14 17:06 | PATH ---
[facility] [place] [address] PATHOLOGY RPT PROCEDURE Name: JONATHAN FORTE Room #: 236-P ADM IN M.R.#: [id number] ������������������ Admission: 07/03/18 ������������������ Date of : 55 Discharge: Report #: [id number] Path Case #: [id number] Note [facility] Accession Number: [id number] TESTS RESULT FLAG UNITS REF RANGE LAB Clinician Provided Cytology Information No. of containers..01 Other (Miscellaneous) Source: BAL DIAGNOSIS: BAL INCONCLUSIVE. RARE GROUPS OF ATYPICAL CELLS IN A BACKGROUND OF MARKED ACUTE INFLAMMATION. Comment: Examination shows a few groups of cells forming glands with atypical nuclear features. There is extensive acute inflammation present in the background. These cells may represent reactive atypical cells. Please correlate clinically (presence of mass) as well as with bronchoscopy findings. If a mass is present, a partially sampled neoplasm enters the differential. Correlate clinically and follow up as indicated. Pathologist ICD10: 02 I48.91 Signed out by: Hailey Sutton MD, Pathologist NPI- [id number] Performed by: Debby Maharaj, Blacking Wheel Tender ([facility]) Gross description: 01 20ML, WILKINS RED THICK, CLOUDY /LCS FLAG LEGEND: L-Low Normal,H-High Normal,LL-Alert Low,HH-Alert High <-Panic Low,>-Panic High,A-Abnormal,AA-Critical Abnormal Performed at: 01 [facility] [address] [place] [address] Mario Young MD, [address] [address] Hailey Sutton MD, Specimen Comment: A courtesy copy of this report has been sent to Specimen Comment: [phone], , . Specimen Comment: Report sent to ,DR FLORIAN / DR WICK [address] [address] PATHOLOGY RPT PROCEDURE Name: JONATHAN FORTE Room #: 236-P [facility] IN M.R.#: [id number] ������������������ Admission: 07/03/18 ������������������ Date of : 55 Discharge: Report #: [id number] Path Case #: [id number] Performed at: 01 [facility] [place] [address], [place], [place] [address] MD Mario Young MD Phone: [phone]
--- NOTE | 2018-07-14 17:13 | NUR ---
ASSUMED CARE @ 0700 07/14/18, PT ASSESSMENTS AND VSS COMPLETE PER ICU PROTOCOL. PT ON THE VENT SEDATED WITH FENTANYL GTT AND VERSED GTT. PT NOT ABLE TO TOLERATE SEDATION VACATION, 02 SATURATION IS OBSERVED TO DROP TO THE 80'S, PT STILL ON 100 % FIO2, PEEP NOW AT 12, PLEASE SEE PROCESS INTERVENTIONS FOR OTHER VENT SETTINGS. PT IS SB ON THE MONITOR, CONVERTED LAST NIGHT, CARDIOLOGY AWARE. PT INITIALLY COLD AT THE BEGINNING OF SHIFT OBTAINED FROM THE CONTINUOUS AXILLARY TEMP PROBE BUT PT FELT WARM TO TOUCH AND SO A MOBILE TEMP WAS OBTAINED AND THE PT TEMP WAS NORMAL. PT OFF MRSA ISOLATION PER Akash YOUNGBLOOD PT OFF LEVOPHED SINCE [address] OG IN PLACE TO LIS AND CLAMPED WHEN MEDICATIONS GIVEN, DONALD IN PLACE. DR HERNANDEZ AT BEDSIDE DURING SHIFT TALKING TO PT'S BROTHER WHO IS DPOA ABOUT CODE STATUS AND QUALITY OF LIFE.
[2018-07-15] VITALS (62 sets, daily range): BP systolic 95–135; BP diastolic 44–61
--- NOTE | 2018-07-15 05:22 | NUR ---
PT INTUBATED AND ON VENT. SEDATED WITH VERSED AND FENTANYL GTTS. PT DOES NOT TOLERATE SEDATION VACATION OR TO BE STIMULATED. EVEN WITH SEDATION, PT BECOMES RESTLESS AND AGITATED WHEN REPOSITIONED OR EXCESSIVELY STIMULATED. PT HAD ONE EPISODE OF AGITATION AND RESTLESS AT THE START OF SHIFT, BUT HAS BEEN CALM AND SUFFICIENTLY SEDATED SINCE THEN. PT RHYTHM CONTINUES TO BE SINUS STANISLAW, WITH THE RATE MOSTLY IN THE 40s. HR DOES DROP SLIGHTLY WHEN SEDATION IS INCREASED, BUT REMAINS IN THE 40s. PT HAS REMAINED OFF OF LEVO GTT THROUGH THE NIGHT. PT HAS BEEN OLIGURIC OVERNIGHT; DR. STANLEY INFORMED OF PT'S LOW URINE OUTPUT YESTERDAY DURING THE DAY. WILL CONTINUE TO MONITOR.
[2018-07-15 06:30] LABS: ALBUMIN 1.8 g/dL (3.4-5.0); CALCIUM 8.4 mg/dL (8.5-10.1); CREATININE 2.9 mg/dL (0.7-1.3); PHOSPHORUS 5.2 mg/dL (2.5-4.9); POTASSIUM 5.1 mmol/L (3.5-5.1)
[2018-07-15 07:53] LABS: BE(vivo) 4.1 mmol/L (-2 to +3); HCO3 27.8 mmol/L (22.0-26.0); PCO2 38.5 mmHg (35.0-45.0); PO2 129.8 mmHg (80.0-100.0); pH 7.477 (7.360-7.450); sO2 98.8 % (92.0-98.0)
[2018-07-16] VITALS (35 sets, daily range): BP systolic 105–151; BP diastolic 45–75
[2018-07-16 05:02] LABS: BE(vivo) 1.8 mmol/L (-2 to +3); HCO3 25.6 mmol/L (22.0-26.0); PCO2 37.1 mmHg (35.0-45.0); PO2 140.9 mmHg (80.0-100.0); pH 7.457 (7.360-7.450); sO2 98.9 % (92.0-98.0)
--- NOTE | 2018-07-16 05:08 | NUR ---
PT REMAINS INTUBATED AND ON VENT. SEDATED WITH FENTANYL AND VERSED GTTS. PT WAKES AND HAS SPASMS, BUT DOES NOT FOLLOW ANY COMMANDS. NO OVERNIGHT EVENTS. FAMILY CONSIDERING COMFORT CARE FOR PT, POSSIBLY TO WITHDRAW CARE ON THURSDAY. WILL CONTINUE TO MONITOR.
[2018-07-16 05:35] LABS: ABSOLUTE NEUTROPHILS 10.4 thou/uL (1.4-8.2); BASOPHILS 0.3 % (0.0-2.0); HEMATOCRIT 29.6 % (42.0-52.0); LYMPHOCYTES 4.3 % (24.0-44.0); MCH 28.6 pg (26.0-34.0); MCHC 33.1 g/dL (28.0-37.0); MCV 86.5 fL (80.0-100.0); MONOCYTES 2.8 % (1.0-8.0); POLYS 92.6 % (36.0-66.0); RBC 3.42 mil/uL (4.50-6.00); RDW 17.7 % (10.5-14.5); WBC 11.3 thou/uL (4.0-11.0)
[2018-07-16 05:41] LABS: HEMOGLOBIN 9.8 gm/dL (14.0-18.0)
[2018-07-16 05:42] LABS: PLATELET COUNT 126 thou/uL (150-400)
[2018-07-16 05:54] LABS: ALBUMIN 1.8 g/dL (3.4-5.0); CALCIUM 8.4 mg/dL (8.5-10.1); CREATININE 3.4 mg/dL (0.7-1.3); PHOSPHORUS 6.3 mg/dL (2.5-4.9); POTASSIUM 4.9 mmol/L (3.5-5.1); TOTAL BILIRUBIN 0.5 mg/dL (<0.1-1.0); TOTAL PROTEIN 5.2 g/dL (6.4-8.2)
--- NOTE | 2018-07-16 10:00 | NUR ---
PATIENT BECAME VERY RESTLESS AND AGGITATED AT JESENIA 0820, STATED THAT HE FELT IMPENDING DOOM, REASSURANCE GIVEN, ATTEMPTING TO PULL AT LINES AND SWATTING AT NURSING STAFF, ABG'S DRAWN AND PATIENT PLACED BACK ON BIPAP WITH FIO2 INCREASED TO 45. MONITOR SHOWING A FIB WITH RVR, DR MOON AND DR CLARK AT THE BEDSIDE AND TELEGRAPHIC TYPEWRITER OPERATOR FOR CARDIOLOGY IN. ORDERS NOTED. IV THERAPY ATTEMPTING TO DECLOT RED PORT OF PICC LINE. PAIN MED GIVEN WITH SOME RELIEF. NS BOLUS INFUSING AND AMIODARONE BOLUS INFUSED AND DRIP INCREASED TO 1 MG, CONVERTED TO SINUS TACH WITH FREQ PAC'S NOTED. PATIENT CALMER AFTER INTERVENTIONS.
--- NOTE | 2018-07-16 16:30 | NUR ---
SW reviewed chart and spoke with attending physician. Pt remains intubated. Pt's family to discuss plan of care of the weekend. Possible withdrawal of care, should pt's condition not improve. SANTOSH is following to assist as needed with discharge planning.
--- NOTE | 2018-07-16 18:40 | NUR ---
ON THE VENT SEDATED WITH VERSED AND FENTANYL. DOESN'T FOLLOW COMMANDS. STARTED ON TUBEFEEDING TODAY AND IS TOLERATING W/MINIMAL RESIDUALS. VITALS STABLE. FAMILY UPDATED AND PLANNING IN COMFORT MEASURES THURSDAY ONCE ALL FAMILY GETS INTO TOWN.
[2018-07-17] VITALS (20 sets, daily range): BP systolic 81–133; BP diastolic 49–70
--- NOTE | 2018-07-17 05:26 | NUR ---
ASSUMED CARE OF PT. AT 1900. ASSESSMENTS AND VITAL SIGNS CHARTED. MEDICATION TITRATION CHARTED. NO BM. PT. IS RESTLESS WHEN TURNED. LOW TEMPERATURES THROUGHOUT NIGHT, DENYS HUGGER ON LOW THROUGHOUT NIGHT. PLAN OF CARE IS TO MONITOR OXYGENATION WITH VENTILATION AND KEEP PT. COMFORTABLE WITH SEDATION. WILL CONTINUE TO MONITOR.
[2018-07-17 05:33] LABS: HEMATOCRIT 30.2 % (42.0-52.0); MCH 28.7 pg (26.0-34.0); MCHC 33.1 g/dL (28.0-37.0); MCV 86.7 fL (80.0-100.0); RBC 3.49 mil/uL (4.50-6.00); RDW 17.3 % (10.5-14.5); WBC 10.9 thou/uL (4.0-11.0)
[2018-07-17 05:49] LABS: ALBUMIN 1.8 g/dL (3.4-5.0); CREATININE 3.8 mg/dL (0.7-1.3); PHOSPHORUS 6.7 mg/dL (2.5-4.9); POTASSIUM 4.7 mmol/L (3.5-5.1)
[2018-07-17 11:24] LABS: HCO3 29.1 mmol/L (22.0-26.0); PCO2 58.8 mmHg (35.0-45.0); PO2 96.7 mmHg (80.0-100.0); pH 7.313 (7.360-7.450); sO2 96.6 % (92.0-98.0)
[2018-07-18] VITALS (19 sets, daily range): BP systolic 80–114; BP diastolic 53–78
[2018-07-18 05:42] LABS: ALBUMIN 1.7 g/dL (3.4-5.0); CALCIUM 8.6 mg/dL (8.5-10.1); CREATININE 3.6 mg/dL (0.7-1.3); PHOSPHORUS 7.5 mg/dL (2.5-4.9); POTASSIUM 4.8 mmol/L (3.5-5.1)
--- NOTE | 2018-07-18 06:32 | NUR ---
END OF SHIFT SUMMARY: Pt has remained stable on vent this shift. Monitor initially sinus rhythm but pt went into a-fib around 0630 with rates 90-120. Plan of care is for pt to be extubated and changed to comfort care when family arrives this a.m.
--- NOTE | 2018-07-18 09:00 | NUR ---
[employer] NOTIFIED OF POTENTIAL TO WITHDRAW VENTILATOR SUPPORT AND PLACE ON COMFORT CARE. SON AT DAUGHTER AT BEDSIDE
--- NOTE | 2018-07-18 19:00 | NUR ---
SHIFT SUMMARY PATIENT IN DEEP SEDATED STATE, RESTRAINTS REMOVED THIS AM, FENTANYL AND VERSED DRIPS HELD THIS AM PER ORDER. PATIENT IS SLOW TO AROUSE, WILL OPEN EYES WITH PAINFUL STIMULI AND OCC OVER BREATHING THE VENT AT 1805, DR MOON INFORMED AND ORDERS NOTED. MONITOR REMAINS AFIB WITH VENT RESPONSE 100 TO 120. BP 80/40 TO 100'S/50. FAMILY AT BEDSIDE, REASSURANCE GIVEN, QUESTIONS ANSWERED. TUBE FEEDING REMAINS ON HOLD.
--- NOTE | 2018-07-18 22:31 | NUR ---
ASSUMED CARE OF PT AT 1900. PT TRIALED ON CPAP BEFORE EXTUBATION. INITIALLY PT DID NOT TOLERATE CPAP, WITH HIS RR DROPPING BELOW 5/MIN. RT CHANGED PT'S VENT MODE TO SIMV. PT BEGAN TO INITIATE BREATHS ON HIS OWN AND EVENTUALLY TOLERATED CPAP TRIAL. DR. MOON CALLED AND NOTIFIED OF THIS, ORDER GIVEN TO EXTUBATE. ET TUBE PULLED AT 2049. PT PLACED ON O2 PER NC. MORPHINE AND ATIVAN ORDERED PRN TO KEEP THE PT COMFORTABLE. FAMILY AT BEDSIDE.
[2018-07-19 01:21] VITALS: BP 84/54
--- NOTE | 2018-07-19 05:00 | NUR ---
PT AT 0439 THIS MORNING. BROTHER/DPRUSSELL HAGER NOTIFIED. BROTHER, ALLEY, WILL DRIVER SALESMAN PT'S BELONGINGS IN THE ICU LATER THIS MORNING. PT WILL BE SENT TO [facility] AND PT'S BROTHER WILL NOTIFY HOSPITAL WHEN A HOME IS DECIDED ON.
--- NOTE | 2018-07-19 11:26 | HC ---
[facility] [place] [address] CONSULTATION Name: JONATHAN FORTE Room #: 236-P [facility] IN M.R.#: [id number] Admission: 07/03/18 ������������������ Attend Phys: Marty Moore MD Discharge: 07/19/18 ������������������ Date of : 55 Report #: [id number] THIS REPORT FOR: //name// CC: Marty Mcallister DATE OF SERVICE: 07/06/2018 NEPHROLOGY CONSULTATION: REASON FOR CONSULTATION: Elevating creatinine. HISTORY OF PRESENT ILLNESS: This chronically ill 63-year-old patient with cerebral palsy, presented with atrial fibrillation, fatigue and shortness of air. He also had been having some difficulty with worsening of his chronic lower extremity edema and scrotal edema. The patient was admitted, treated with diuretics. Atrial fibrillation was addressed and he converted to sinus rhythm. Despite that, he has had intermittent low blood pressures, worsening shortness of air and elevating creatinine from baseline 0.9 up now to 3.1. No previous history of renal disease as far as we can tell, the patient is an extremely poor historian and not able to give us much of anything in that regard. PAST MEDICAL HISTORY: He has cerebral palsy, has had multiple surgical procedures on lower extremities to relieve that, the chronic lower extremity edema well known. He has got rather severe asthma and apparently also a history of urinary tract infection, possibly prostatic hypertrophy. He also has essential hypertension. HOME MEDICATIONS: Include ProAir HFA inhaler, amlodipine 5 mg daily, Brovana nebulizer, Pulmicort, Depakote 1500 mg in the evening, Proscar 5 mg daily, omeprazole 40 mg daily, Trileptal 300 mg 1 in a.m., 2 in p.m., Crestor 10 mg daily, Spiriva inhaler and risperidone. REVIEW OF SYSTEMS: Very difficult to take due to patient being a very poor historian. He does awaken and can follow very simple requests. ALLERGIES: REPORTEDLY TO ERYTHROMYCIN AND SULFA. SOCIAL HISTORY: Appears to stay in some sort of an extended care facility as far as I can tell. PHYSICAL EXAMINATION: GENERAL: This is a chronically ill-appearing gentleman. He has got nasal cannula oxygen, somewhat difficult respirations. [facility] [address] [place] [address] CONSULTATION Name: JONATHAN FORTE Room #: 236-P [facility] IN ..#: [id number] Admission: 07/03/18 ������������������ Attend Phys: Marty Moore MD Discharge: 07/19/18 ������������������ Date of : 55 Report #: [id number] SKIN: Otherwise, remarkable for brawny edema in the lower extremities. SKELETAL: No amputations. HEENT: Extraocular movements appear to be full. No scleral icterus is noted. NECK: Supple, no carotid bruits are heard. CHEST: Shows diminished breath sounds with occasional rhonchi. HEART: Regular currently. ABDOMEN: Soft and nontender. EXTREMITIES: Shows a brawny edema as mentioned. LABORATORY DATA: Hemoglobin 11.4, white count is only 3.8. Potassium is 5, creatinine 3.1, BUN is 57. ASSESSMENT: 1. Acute kidney injury. His creatinine is elevated. He has had quite a bit of hypotension since admission, possibly had been treated too aggressively with diuretics, may be very difficult to mobilize a brawny lower extremity edema that could be very difficult to mobilize and attempts therefore is to avoid hypotension, decrease renal perfusion. For completeness, renal electrolytes will be sent. I will do a renal sonogram. He does have the previous history of prostatic hypertrophy. He has been on Proscar. The low blood pressures are certainly contributing, possibly he has atrial fib, although now he is back into sinus rhythm and this should certainly help. There is also probable component of right-sided heart failure, elevated pulmonary pressures, chronic asthma, all of which may be contributing and possibly he may require even the addition of IV fluids despite his generalized volume overload. 2. Asthma with exacerbation, cannot use steroids due to his other underlying conditions. 3. 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 4. History of schizophrenia and/or bipolar disorder. 5. History of hypertension. 6. History of Myers's esophagus. 7. History of esophagitis. ��������������������������������������������� <ELECTRONICALLY SIGNED> ���������������������������������������� By: Yohan Mays MD ��������������������������������������������� 07/19/18 1126 1027 0252 Yohan Mays MD /nt
== END 2018-07-19 04:39 | DRG 207 ==
LOC: ER 06:43 → EROBS 08:35 → 2N 08:35 → ICU 07-12 22:39
PROVIDERS: Emergency Medicine; Internal Medicine Cardiovascular Disease; Internal Medicine Nephrology; Pediatrics; ADMIT Hospitalist
PROC: 0VQ50ZZ Repair Scrotum, Open Approach (ICD-10-PCS; principal; 2018-07-03)
PROC: 5A09357 Assistance with Respiratory Ventilation, Less than 24 Consecutive Hours, Continuous Positive Airway Pressure (ICD-10-PCS; 2018-07-07)
PROC: 5A09357 Assistance with Respiratory Ventilation, Less than 24 Consecutive Hours, Continuous Positive Airway Pressure (ICD-10-PCS; 2018-07-08)
PROC: 5A09357 Assistance with Respiratory Ventilation, Less than 24 Consecutive Hours, Continuous Positive Airway Pressure (ICD-10-PCS; 2018-07-09)
PROC: 5A09357 Assistance with Respiratory Ventilation, Less than 24 Consecutive Hours, Continuous Positive Airway Pressure (ICD-10-PCS; 2018-07-10)
PROC: 5A09357 Assistance with Respiratory Ventilation, Less than 24 Consecutive Hours, Continuous Positive Airway Pressure (ICD-10-PCS; 2018-07-11)
PROC: 5A09357 Assistance with Respiratory Ventilation, Less than 24 Consecutive Hours, Continuous Positive Airway Pressure (ICD-10-PCS; 2018-07-12)
PROC: 0B9C8ZX Drainage of Right Upper Lung Lobe, Via Natural or Artificial Opening Endoscopic, Diagnostic (ICD-10-PCS; 2018-07-12)
PROC: 0BH17EZ Insertion of Endotracheal Airway into Trachea, Via Natural or Artificial Opening (ICD-10-PCS; 2018-07-13)
PROC: 5A1955Z Respiratory Ventilation, Greater than 96 Consecutive Hours (ICD-10-PCS; 2018-07-13)
PROC: 02HV33Z Insertion of Infusion Device into Superior Vena Cava, Percutaneous Approach (ICD-10-PCS; 2018-07-13)
DX: J96.01 Acute respiratory failure with hypoxia (principal); J69.0 Pneumonitis due to inhalation of food and vomit; N17.9 Acute kidney failure, unspecified; E44.0 Moderate protein-calorie malnutrition; J45.901 Unspecified asthma with (acute) exacerbation; I42.9 Cardiomyopathy, unspecified; G80.9 Cerebral palsy, unspecified; F20.9 Schizophrenia, unspecified; Z87.01 Personal history of pneumonia (recurrent); K21.9 Gastro-esophageal reflux disease without esophagitis; F31.9 Bipolar disorder, unspecified; E78.00 Pure hypercholesterolemia, unspecified; N50.89 Other specified disorders of the male genital organs; G83.9 Paralytic syndrome, unspecified; M47.819 Spondylosis without myelopathy or radiculopathy, site unspecified; I11.0 Hypertensive heart disease with heart failure; I50.9 Heart failure, unspecified; S30.22XA Contusion of scrotum and testes, initial encounter; X58.XXXA Exposure to other specified factors, initial encounter; E87.5 Hyperkalemia; N13.9 Obstructive and reflux uropathy, unspecified; I48.0 Paroxysmal atrial fibrillation; D64.9 Anemia, unspecified; Z79.2 Long term (current) use of antibiotics; Z79.899 Other long term (current) drug therapy; Z88.2 Allergy status to sulfonamides; Z88.1 Allergy status to other antibiotic agents; Z88.8 Allergy status to other drugs, medicaments and biological substances; Z91.81 History of falling; Z87.440 Personal history of urinary (tract) infections; Y93.89 Activity, other specified; Y92.89 Other specified places as the place of occurrence of the external cause; Y99.8 Other external cause status; Z68.28 Body mass index [BMI] 28.0-28.9, adult; Z79.01 Long term (current) use of anticoagulants; Z99.3 Dependence on wheelchair; Z51.5 Encounter for palliative care
CPT/HCPCS: 10078; 10081; 27000